=== PATIENT | male | born 1995 | race Caucasian/White ===

== ENCOUNTER 2018-06-07 17:32 | Emergency (ER) | payer BC ==
[2018-06-07] MEDS ORDERED: Acetaminophen/HYDROcodone 325-5 MG Tab PO ONE (17:33)
[2018-06-07] MEDS ORDERED: Take Home: Acetaminophen/HYDROcodone 325-5 MG, 2 Tab Pack PO ONE (17:42)
--- NOTE | 2018-06-07 17:42 | EDM.PDOC ---
ED HPI GENERAL MEDICAL PROBLEM - General Chief Complaint: Lower Extremity Injury/Pain Stated Complaint: FOOT INJURY Time Seen by Provider: 06/07/18 17:34 Source of Information: Reports: Patient History Limitations: Reports: No Limitations - History of Present Illness INITIAL COMMENTS - FREE TEXT/NARRATIVE: This patient is a 22 year old male that presents to the ER. Patient reports that he was playing baseball and was batting right handed. He reports stepping in the left handed batter box and twisted his left foot inward. Patient reports left foot pain. Patient denies any other injury. Pulses +2, cap refill <2 sec, sensory/motor function intact with pain, neurovascular intact. Onset: Today Onset Date: 06/07/18 Onset Time: 13:30 Duration: Hour(s): (4) Location: Reports: Lower Extremity, Left Front/Back Body Image: 1 - pain, tenderness, swelling. Severity: Mild Improves with: Reports: Immobilization Worsens with: Reports: Movement Associated Symptoms: Denies: Confusion, Chest Pain, Cough, cough w sputum, Diaphoresis, Fever/Chills, Headaches, Loss of Appetite, Malaise, Nausea/Vomiting , Rash, Seizure, Shortness of Breath, Syncope, Weakness Left Feet Pain Score (Numeric/FACES): 5 - Related Data Allergies Allergy/AdvReac Type Severity Reaction Status Date / Time Sulfa (Sulfonamide Allergy Hives Verified 06/07/18 17:47 Antibiotics) Home Meds: Home Meds . [No Known Home Meds] 06/07/18 [History] Review of Systems - Review of Systems Review Of Systems: See Below Constitutional: Reports: No Symptoms Eyes: Reports: No Symptoms Ears: Reports: No Symptoms Nose: Reports: No Symptoms Mouth/Throat: Reports: No Symptoms Respiratory: Reports: No Symptoms Cardiovascular: Reports: No Symptoms GI/Abdominal: Reports: No Symptoms Genitourinary: Reports: No Symptoms Musculoskeletal: Reports: Foot Pain (left) Skin: Reports: No Symptoms Neurological: Reports: No Symptoms Psychiatric: Reports: No Symptoms ED EXAM, GENERAL - Physical Exam Exam: See Below Exam Limited By: No Limitations General Appearance: Alert, WD/WN, No Apparent Distress Respiratory/Chest: No Respiratory Distress, Lungs Clear, Normal Breath Sounds, No Accessory Muscle Use Cardiovascular: Normal Peripheral Pulses, Regular Rate, Rhythm, No Edema, No Gallop, No JVD, No Murmur, No Rub Peripheral Pulses: 2+: Posterior Tibial (L), Dorsalis Pedis (L) (Male) Exam: Deferred Rectal (Males) Exam: Deferred Extremities: No Pedal Edema, Normal Capillary Refill, Other (Left foot 2nd, 3rd , 4th metatarsal pain, tenderness, swelling. ) Neurological: Alert, Oriented Psychiatric: Normal Affect, Normal Mood Skin Exam: Warm, Dry, Intact, Normal Color, No Rash Course - Vital Signs Last Recorded V/S: Last Vital Signs Temp 99.3 F 06/07/18 17:33 Pulse 100 06/07/18 17:33 Resp 18 06/07/18 17:33 BP 132/85 06/07/18 17:33 Pulse Ox 99 06/07/18 17:33 - Orders/Labs/Meds Meds: Medications Discontinued Medications Generic Name Dose Route Start Last Admin Trade Name Kevyn PRN Reason Stop Dose Admin Hydrocodone Bitart/Acetaminophen 3 packet 06/07/18 17:42 06/07/18 18:09 Take Home: Acetaminophen/Hydrocod, 2 Tab Pack PO 06/07/18 17:43 Not Given ONETIME ONE Departure - Departure Time of Disposition: 14:20 Disposition: Home, Self-Care 01 Condition: Fair Clinical Impression: Sprain of left foot Qualifiers: Encounter type: initial encounter Qualified Code(s): S93.602A - Unspecified sprain of left foot, initial encounter - Discharge Information Instructions: Crutch Use, Adult, [id number], Foot Sprain, Pain Medicine Instructions, [id number] Referrals: [place] Raza MD [Primary Care Provider] - Forms: ED Department Discharge Additional Instructions: Followup with your primary care provider if still having pain after 10 days Return to the ER for worsening of condition or any emergent concerns Followup with Orthopedic as needed Rest Ice Elevate Boot Crutches with weight bearing as tolerated [place] 5/325mg 1-2 pills every 4-6 hours as needed for pain #6 take home No refill: #18 no refill IbuProfen over the counter for pain and swelling - Assessment/Plan Plan: PLEASE SEE RN NOTE FOR PFSH.
== END 2018-06-07 18:20 | disposition home or self-care (01) ==
LOC: CC.ED 17:32
DX: S93.602A Unspecified sprain of left foot, initial encounter (principal); Z88.2 Allergy status to sulfonamides; Y93.64 Activity, baseball; X50.1XXA Overexertion from prolonged static or awkward postures, initial encounter
CPT/HCPCS: 73630; 99283; A9270